=== PATIENT | male | born 1945 | race Caucasian/White ===

== ENCOUNTER → 2016-10-02 | Outpatient (CLI) | payer OTHER, BC ==
[~2016-10-02] VITALS: Ht 188 cm; Wt 102.5 kg
[~2016-10-02] MED LIST: ADULT LOW DOSE81 MG PO; ALEVE220 MG PO; AMLODIPINE BESY10 MG PO; BUPROPION XL150 MG PO; CIPRO500 MG/5 M PO; CONCERTA ER 2727 MG PO; COUMADIN7.5 MG PO; CYANOCOBALAM1000 MCG PO; DIOVAN160 MG PO; HYDROCODON-ACE1 EAC1 PO; HYDROCODON-ACE1 EAC5 PO; LEVOTHYROXIN0.175 MG PO; LEVOXYL PO; LIPITOR 20 MG T20 M1 PO; LOPRESSOR25 PO; LOSARTAN-HCTZ1 EAC2 PO; MINOCIN100 MG PO; NABUMETONE 750750 M1 PO; NEURONTIN 300300 M1 PO; NEURONTIN100 MG PO; NORCO 10-325 T1 EACH PO; NORCO 7.5-3251 EACH PO; PEPCID20 MG PO; REMERON15 M1 PO; SERTRALINE HCL100 MG PO; SYNTHROID150 MCG PO; TOPROL XL25 MG PO; ULTRAM 50MG TAB50 MG PO; WELLBUTRIN SR150 MG PO
--- NOTE | ~2016-10-02 | HPC ---
[facility] [place] [address] [address] PAIN MANAGEMENT CONSULTATION Name: KLARISSA PENNY [facility] #[facility] [id number] Admission: 10/02/16 Attend Phys: Celia Griffin MD Discharge: Date of : 46 Report #: [id number] THIS REPORT FOR: //name// CC: Celia Davis MD DATE OF SERVICE: 10/02/2016 FOLLOWUP COMPLAINT: Here for medication secondary to chronic right knee pain. FOLLOWUP COMPLAINT: The patient is a 71-year-old gentleman who has been followed in the pain clinic because of osteoarthritis and right knee pain. He continues to have pain and discomfort, which is quite problematic. He finds that his medications of hydrocodone continued to be helpful. He states that he is taking his medications as prescribed. He rates his pain as a 4/10 today. PHYSICAL EXAMINATION: The patient is alert, appears to be taking medication as prescribed. Blood pressure 113/73, pulse 73, respiratory rate 12, room air saturation 95%, height 6 feet 2 inches, weight 102 kg, and BMI is 29. IMPRESSION: 1. Osteoarthritis his right knee. The patient states 1 leg is a little longer than the other. 2. Hyperlipidemia. 3. Hypertension. RECOMMENDATIONS: A script for his medications has been rewritten. The patient states that he is taking his medications as prescribed. He will follow up with Dr. Nichole in the near future. We would like to thank you for letting us participate in his care. He feels that these medications are quite efficacious enabling him to continue to participate in activities of daily living with manageable comfort. By: [id number] Celia Griffin MD /nt
[2016-10-02 08:16] VITALS: BP 113/73
== END | disposition home or self-care (01) ==
LOC: PAIN 09-30 07:04
DX: M17.11 Unilateral primary osteoarthritis, right knee (principal); E78.5 Hyperlipidemia, unspecified; I10 Essential (primary) hypertension

== ENCOUNTER → 2017-03-11 | Outpatient (CLI) | payer OTHER, BC ==
[~2017-03-11] VITALS: Ht 188 cm; Wt 101.8 kg
--- NOTE | ~2017-03-11 | HPC ---
[facility] [place] [address] [address] [place] [address] PAIN MANAGEMENT CONSULTATION Name: KLARISSA PENNY Room #: REG CL MJacob.#: [id number] Admission: 03/11/17 Attend Phys: Bernard Nichole MD Discharge: Date of : 46 Report #: [id number] THIS REPORT FOR: //name// CC: Pascual Nichole DATE OF SERVICE: 03/11/2017 DATE OF REGISTRATION: 03/11/2017 Followup visit for chronic right knee pain. The patient is managing his osteoarthritis pain with hydrocodone. He takes a small amount 15 morphine mg equivalents per day and finds that this is very effective without significant side effect. He does not require the use of nonsteroidal anti-inflammatory drugs when he uses his hydrocodone and is cautious about them due to these GI side effects. Today, he reports with medication pain is 5. He describes it sharp and aching and tender. It has been getting progressively worse and radiating a little bit down towards the nuñez. He would be a candidate for knee replacement. He would like to hold off on surgery at this time. The patient had a history of reconstruction of the left knee after a fall in 2011. PHYSICAL EXAMINATION: VITAL SIGNS: Blood pressure 129/77, heart rate 73, BMI is 28. EXTREMITIES: Mild tenderness and crepitus is noted over the right knee with osteoarthritis. IMPRESSION: 1. Osteoarthritis, right knee. 2. Management of high risk medication. PLAN: I have renewed his hydrocodone under terms of our opioid agreement. His role in safeguarding these medications was discussed. No side effects are reported today. Significant improvement day-to-day activities also reported with the use of his medicines. Follow up in 3 months. By: [id number] 0234 Bernard Nichole MD /nt
[2017-03-11 14:34] VITALS: BP 129/77
== END | disposition home or self-care (01) ==
LOC: PAIN 07:16
DX: M17.11 Unilateral primary osteoarthritis, right knee (principal); Z79.1 Long term (current) use of non-steroidal anti-inflammatories (NSAID); Z87.891 Personal history of nicotine dependence

== ENCOUNTER → 2017-08-04 | Outpatient (CLI) | payer OTHER, BC ==
[~2017-08-04] VITALS: Ht 188 cm; Wt 103.0 kg
[~2017-08-04] MED LIST changes: +EFFEXOR XR37.5 MG PO; +METHYLPHENIDATE27 MG PO; +XANAX 0.5 MG0.5 MG PO
--- NOTE | ~2017-08-04 | HPC ---
[facility] [place] [address] [place] [address] PAIN MANAGEMENT CONSULTATION Name: KLARISSA PENNY Room #: REG CL M..#: [id number] Admission: 08/04/17 Attend Phys: Bernard Nichole MD Discharge: Date of : 46 Report #: [id number] THIS REPORT FOR: //name// CC: Pascual Nichole DATE OF SERVICE: 08/04/2017 Followup visit for osteoarthritis, right knee. The patient returns to pain clinic today for renewal of his pain medication. He is on a very low dose of hydrocodone, taking on average no more than 2 tablets of oxycodone 10/325 per day. This would be an MME of 20. We discussed the CDC guidelines, his opioid agreement and I have reviewed the opioid risk tool which is 3, showing a [id number] risk. He has a pain impact score of 40/70. Since the last visit, he has been diagnosed with prostate cancer. Dr. Davis felt some unusual nodules. PSA was elevated and Dr. Pedroza performed a biopsy. He is currently on Lupron, his only new medication. PQRS review shows that he does have osteoarthritis of the right knee, for which I provided him pain relief medication. His BMI is 29.1. His blood pressure is 122/73, heart rate is 72. He does not have a history of hypertension. He has no history of fall risk. He is on an opioid agreement, which was signed today. His opioid risk tool and functional assessment tools were both reviewed as well. Functional assessment is 40/70 and his risk assessment tool is 3, which is low risk for addiction. I told him what his MME is; he should keep track of that. I told him that at this low level, Dr. Davis could provide medication for him if he would like going forward. He will continue to follow up with our clinic until the transitions are made through. <ELECTRONICALLY SIGNED> By: Bernard Nichole MD 08/18/17 1640 [id number] 0052 Bernard Nichole MD /nt
[2017-08-04 13:45] VITALS: BP 122/73
== END ==
LOC: PAIN 06:45
DX: M17.11 Unilateral primary osteoarthritis, right knee (principal)

== ENCOUNTER → 2018-01-04 | Outpatient (CLI) | payer OTHER, BC ==
[~2018-01-04] VITALS: Ht 188 cm; Wt 101.9 kg
[~2018-01-04] MED LIST changes: -EFFEXOR XR37.5 MG PO; -METHYLPHENIDATE27 MG PO; -XANAX 0.5 MG0.5 MG PO
--- NOTE | ~2018-01-04 | HPC ---
[facility] [address] [place] [address] PAIN MANAGEMENT CONSULTATION Name: HEMALATHAKLARISSA Room #: REG CL M.R.#: [id number] Admission: 01/04/18 Attend Phys: Klarissa Barrera DO Discharge: Date of : 46 Report #: [id number] THIS REPORT FOR: //name// CC: Klarissa Davsi MD DATE OF SERVICE: 01/04/2018 REFERRING PHYSICIAN: Pascual Davis MD CHIEF COMPLAINT: Right knee and distal right leg pain. HISTORY OF PRESENT ILLNESS: As you know, the patient is a 72-year-old male who has been followed by my partner, Dr. Bernard Nichole for right knee pain with radiation to the top of the ankle on the right side. The patient has undergone epidural injections and intra-articular knee injections, both of which have provided transient improvement in symptoms. He returns today stating his pain is constant, spiky in sensation, he states pain at a level of 4/10, indicates pain is exacerbated with standing, pain with walking, appears to cause some symptoms at night that he response to descriptions of aching and pounding. He indicates pain is alleviated with exercise and medication management. The patient returns today in followup visit to discuss continuation of medication management. He has not had evaluation of the lower extremity from an EMG standpoint. There is some consideration his symptoms may be related to the lumbar spine, though his response to both the epidural injection and intra-articular knee injection was only for 30 minutes profound improvement with immediate return of pain. He returns for medication management and to discuss options for treatment. ALLERGIES: HYDROMORPHONE. CURRENT MEDICATIONS: Hydrocodone/acetaminophen 10/325 one tab every 6 hours p.r.n. for pain, levothyroxine 175 mcg per day, atorvastatin 20 mg per day, aspirin 81 mg per day, Remeron 15 mg per day, sertraline 100 mg per day, and amlodipine 10 mg per day. SOCIAL HISTORY: The patient reports he is nonsmoker. Denies IV or illicit drug use. He is unaccompanied today. IMAGING: No new imaging available. PQRS: The patient has right lower extremity osteoarthritis, mild left knee arthritis. He is not a fall risk, has not had a fall in the last 3 months. He is not on blood thinners. He is treated for hypertension. He is on opioids and has been so for greater than 6 weeks. He is at a low risk for opioid addiction. [address] [address] PAIN MANAGEMENT CONSULTATION Name: HEMALATHAKLARISSA MCPHERSON LETICIA Room #: REG CLI [facility] [id number] Admission: 01/04/18 Attend Phys: Klarissa Barrera DO Discharge: Date of : 46 Report #: [id number] His functional assessment indicates pain impact score 40/70, moderate. He does not have a diagnosis of rheumatoid arthritis. PHYSICAL EXAMINATION: VITAL SIGNS: Blood pressure 127/80, pulse 81, respiratory rate 16 and unlabored, the patient is 97% on room air, height 6 feet 2 inches tall, weight 224.6 pounds, and BMI calculated 28.8. GENERAL: Well-developed, well-nourished, well-hydrated 72-year-old male, appears stated age, placing current pain score at 4/10. HEENT: Normocephalic, atraumatic. Pupils are equal, round, and reactive to light. EXTREMITIES: Show no clubbing, no cyanosis, and no edema. MUSCULOSKELETAL: Active and passive range of motion of the left knee causes no increasing pain. Active and passive range of motion right knee causes intensification of pain. Weightbearing causes pain elicited at the superior tibia with radiation all the way to the distal tibia. No fibular involvement. Seated straight leg raising negative. Supine straight leg raising negative. Anh's test negative. Modified Gaenslen's only positive for some axial back pain. This does not exacerbate right leg pain. ASSESSMENT: 1. Right lower extremity pain. 2. Right knee pain. 3. Chronic intractable pain. PLAN: 1. The patient returns today in followup visit stating that he has received exactly the same effect with an intraarticular knee injection on the right as he did with an epidural injection with 100% improvement in pain lasting for about 30 minutes and a subsequent return of symptoms to baseline level. Difficult to determine the source of the patient's symptoms given the efficacy of both injections, but only for that a transient amount of time. Further evaluation of the right lower extremity may be necessary, his distribution appears to be related more to the tibia and the anterior tibialis muscle than it would any other potential pain generator, the intraarticular knee injection did not provide prolonged improvement, though he does likely have some arthritic changes on that right knee; the lumbar spine injection was done without prolonged improvement effectively ruling out the lumbar spine is the source of the symptoms. His distribution does not meet dermatomal distribution as well. Further evaluation I believe might be necessary. We would recommend to Dr. Nichole and/or Dr. Davis the possibility of having the patient to undergo EMG, this would help determine if there is a neuropathic component of symptoms or whether or not there is a more distal lumbar radicular symptoms, but given the distribution of symptoms, I do not feel this is likely. EMG could help further determine the source of the patient's symptoms. 2. The patient was provided a prescription of [place] 10/325 one tab every 6 [facility] [place] [address] PAIN MANAGEMENT CONSULTATION Name: KLARISSA PENNY Room #: REG EFE Gillespie.#: [id number] Admission: 01/04/18 Attend Phys: Klarissa Barrera DO Discharge: Date of : 46 Report #: [id number] p.r.n. for pain, I have given the patient #120, release dates of today and 4 weeks from today, 2 months' worth of medication. The patient will be following up with Dr. Nichole for the possible EMG referral. Otherwise, he will be back in 2 months for medication management. By: [id number] Klarissa Barrera DO /nt
[2018-01-04 09:46] VITALS: BP 127/80
== END ==
LOC: PAIN 08:21
DX: M25.561 Pain in right knee (principal); M79.604 Pain in right leg; G89.4 Chronic pain syndrome; Z79.899 Other long term (current) drug therapy

== ENCOUNTER → 2018-01-20 | Outpatient (CLI) | payer OTHER, BC ==
[~2018-01-20] VITALS: Ht 188 cm; Wt 101.6 kg
[~2018-01-20] MED LIST changes: +EFFEXOR XR37.5 MG PO; +METHYLPHENIDATE27 MG PO; +XANAX 0.5 MG0.5 MG PO
--- NOTE | ~2018-01-20 | HPC ---
[facility] [place] [address] [place] [address] PAIN MANAGEMENT CONSULTATION Name: KLARISSA PENNY [facility] #[facility] [id number] Admission: 01/20/18 Attend Phys: Bernard Nichole MD Discharge: Date of : 46 Report #: [id number] THIS REPORT FOR: //name// CC: Pascual Nichole DATE OF SERVICE: 01/20/2018 CHIEF COMPLAINT: Pain in the right knee. I am seeing the patient today with complaints of knee pain. Pain is worse with activity and after he has been active and then sits, the pain is worse when he first gets up. It is often worse at night. Describes it as a spiky constant pain, 5/10. When the pain is severe, it radiates from just below the kneecap down into the nuñez and to the ankle. We have given some consideration to this pain, radicular symptoms as he has had treatment for that in the past; however, there is a lot of localized discomfort around the knee. His exam seems to point the knee as the primary pain generator. MEDICATIONS: Include venlafaxine, alprazolam, methylphenidate and hydrocodone. ALLERGIES: HYDROMORPHONE. PHYSICAL EXAMINATION AND PQRS: Pleasant, alert and oriented, without signs of overmedication. No signs of depression. Blood pressure 152/78, heart rate 71, respirations 16. BMI is 28.7. He is not a fall risk. He moves from sitting to standing position and walks with some discomfort in his knee, but otherwise, without antalgic features. He has osteoarthritis and tenderness around the knee. Drawer test is negative. There is pain along the lateral aspect of the knee joint itself that radiates down into the lateral calf. No numbness, tingling or weakness is noted. He is on an opioid agreement receiving hydrocodone from our clinic under terms of that agreement. We reviewed the details. He is at low risk for addiction. He is a nonsmoker. SOCIAL HISTORY: Denies use of excessive alcohol or any drug addictions. IMPRESSION: Right knee pain with osteoarthritis. PROCEDURE: Knee injection under fluoroscopic guidance. DESCRIPTION OF PROCEDURE: He was taken to fluoroscopic suite for the injection, placed supine. The skin was prepped with ChloraPrep. Skin was anesthetized laterally and I gently advanced a 25-gauge needle and a subpatellar fashion into the intra-articular knee joint. I injected 0.5 mL of Omnipaque to demonstrate [address] [address] PAIN MANAGEMENT CONSULTATION Name: KLARISSA PENNY Room #: REG EFE Nino#: [id number] Admission: 01/20/18 Attend Phys: Bernard Nichole MD Discharge: Date of : 46 Report #: [id number] an articular spread. It was then followed by 3 mL of 0.5% bupivacaine mixed with 40 mg of triamcinolone. He tolerated the procedure well. Medications were provided for him under our agreement terms hydrocodone 10325 #120 one tablet q. 6 hours. Strict instructions given to safeguard his medication. Diversion being one of the primary methods by which prescription medications are dispersed into the general population, and he has significant responsibilities in using the medication. If it is not better, I will see him back in the clinic for possible epidural injection. By: 1003 1822 Bernard Nichole MD /nt
[2018-01-20 09:08] VITALS: BP 152/78
== END | disposition home or self-care (01) ==
LOC: PAIN 06:35
DX: M17.11 Unilateral primary osteoarthritis, right knee (principal); G89.29 Other chronic pain; Z88.8 Allergy status to other drugs, medicaments and biological substances; Z79.891 Long term (current) use of opiate analgesic; Z87.891 Personal history of nicotine dependence; Z79.899 Other long term (current) drug therapy; Z79.82 Long term (current) use of aspirin

== ENCOUNTER → 2018-05-31 | Outpatient (CLI) | payer OTHER, BC | LOC: MRI 06:49 | DX: S43.492A Other sprain of left shoulder joint, initial encounter (principal); M19.012 Primary osteoarthritis, left shoulder; M75.22 Bicipital tendinitis, left shoulder; M25.412 Effusion, left shoulder; M25.812 Other specified joint disorders, left shoulder; X58.XXXA Exposure to other specified factors, initial encounter; Y93.89 Activity, other specified; Y92.89 Other specified places as the place of occurrence of the external cause; Y99.8 Other external cause status ==

== ENCOUNTER → 2018-06-06 | Outpatient (CLI) | payer OTHER, BC ==
[~2018-06-06] VITALS: Ht 188 cm; Wt 104.3 kg
--- NOTE | ~2018-06-06 | HPC ---
[facility] [address] [place] [address] PAIN MANAGEMENT CONSULTATION Name: KLARISSA PENNY Room #: REG CLI M..#: [id number] Admission: 06/06/18 Attend Phys: Carey Stewart Discharge: Date of : 46 Report #: [id number] THIS REPORT FOR: //name// CC: Carey Stewart Pascual [facility] DATE OF SERVICE: 06/06/2018 CHIEF COMPLAINT: Pain in his right knee and right shoulder. HISTORY OF PRESENT ILLNESS: The patient returns to the pain clinic today for complaints of right knee pain. He is here for his medication management. The patient takes hydrocodone 10/325 sparingly for his right knee pain. He has had some ongoing right shoulder pain as well and the patient is scheduled to have his right shoulder replaced in June by Dr. Ryan. He tells me that he had a recent injection from Dr. Klarissa Barrera in January that helped him significantly with his knee pain. ALLERGIES: HYDROMORPHONE. LIST OF CURRENT MEDICATIONS: Xanax 0.5 mg as needed, methylphenidate ER 27 mg every day, hydrocodone 10/325 as needed, Synthroid 0.175 mg daily, atorvastatin 20 mg daily, aspirin 81 mg daily, Remeron 15 mg at bedtime, Zoloft 100 mg daily, amlodipine 5 mg daily. PQRS: He has a history of osteoarthritis in his right lower extremity, knee and right shoulder. He denies rheumatoid arthritis. Height is 6 feet 2 inches, weight is 230, BMI is 29.5. Vital signs: Blood pressure 136/79, pulse is 71, respirations 14, oxygen sat is 96. Pain score today is 4/10. He denies dizziness. Does not need help walking or standing and has not fallen in the last 3 months. The patient is not on any blood thinners and does have a history of taking antihypertensive medicines. The patient has opioid therapy greater than 6 weeks, therefore, an opioid signed contract is on the chart. His risk assessment tool is low and his functional assessment is 40/70. Recreational drug use, the patient denies. He is a former smoker and does drink occasional alcohol use. We did check the prescription monitoring system. The patient is filling his pain medications from only doctors here within the clinic. The patient tells me he safeguards his medicines and so there is no aberrant behavior noted. We do not have a recent drug screen on the chart so therefore one will be collected today. PHYSICAL EXAMINATION: GENERAL: This is a very pleasant, alert and oriented 72-year-old gentleman that appears his stated age. His affect is appropriate. No signs of depression. HEENT: Normocephalic, atraumatic. Extraocular eye muscles are intact. Mucous membranes are moist. Hearing is adequate. [address] [address] PAIN MANAGEMENT CONSULTATION Name: HEMALATHA,KLARISSA KELLY Room #: REG [facility] [id number] Admission: 06/06/18 Attend Phys: Carey Stewart Discharge: Date of : 46 Report #: [id number] NECK: No JVD or adenopathy. MUSCULOSKELETAL: Tenderness in his right shoulder. Pain is elicited doing range of motion, has very limited range of motion in that shoulder. The patient has right knee tenderness, but strength in all lower extremity muscle groups judged to be 5/5. The patient does walk with some slightly antalgic gait. We reviewed the fact that opiate medications are being used to provide analgesia adequate to support activities of daily living, not attempting to achieve a specific pain score on the 0-10 Visual Analog Scale. The current opiate medications are providing sufficient analgesia to allow the patient to participate in activities of daily living. The patient is not exhibiting any aberrant behavior suggestive of drug diversion. The patient is not having any adverse reactions to medications. The patient is not suffering from daytime somnolence or mental acuity changes. The patient is managing opiate-induced constipation with appropriate bxle-asu-gtpioit agents and dietary considerations. The patient was counseled on concern for caution with operating a motor vehicle while using opiate medications. A physical exam was performed and the patient's functional status was evaluated. All patients with back pain were advised against the bed rest greater than 4 days and were advised to return to normal activities. Pain score assessment was noted and the treatment plan was reviewed with the patient. All current medications, both prescribed and OTC were reviewed and reconciled on the electronic medical record. Tobacco screening was accomplished and smoking cessation was advised when indicated. BMI was noted and diet/exercise modification was recommended for all patients following outside normal parameters. I reviewed with the patient today their responsibilities to safeguard prescription medications, reviewed their responsibility to utilize medications only as prescribed by the physician. They are to seek and receive pain medications only from 1 physician group ( [facility]). They are to use 1 pharmacy and keep the clinic informed if they change pharmacies. Their responsibilities include making followup visits in a timely fashion and to avoid abrupt discontinuation of medication usage. Their responsibilities further include bringing their medications (bottles from the pharmacy with residual pills) to the visit for possible confirmation of pill counts and the patient understands it is their responsibility to submit to random drug screens to ensure both that the medications prescribed are present, and that no other controlled substances are present. All prescriptions provided today were generated electronically. ASSESSMENT: Right knee pain with osteoarthritis, right shoulder pain with osteoarthritis. PLAN: [place] [id number] PAIN MANAGEMENT CONSULTATION Name: KLARISSA PENNY Room #: REG [facility].#: [id number] Admission: 06/06/18 Attend Phys: Carey Stewart Discharge: Date of : 46 Report #: [id number] 1. We discussed treatment options with the patient today. The patient tells me that he currently takes his hydrocodone as needed. He takes it very sparingly. Last scripts that we gave him were in December. We gave him 120 with a release today and 4- week. The patient tells me he safeguards his medicines, but is running low and would like a refill. 2. Script given today for 120 of hydrocodone 10/325 for 2 months. 3. The patient tells me that he is having his right shoulder replaced in June. We discussed trying to take very minimal or no hydrocodone prior to surgery for at least a week, so therefore when he has his surgery, his pain medicine will work better. The patient is agreeable with this plan. I also instructed him that if the surgeon gives him any stronger pain medicines, just to let us know. We will make note that he is having surgery. The patient informed me he will call if he does get anything stronger than hydrocodone that he is currently taking. 4. Oral drug screen is collected today. There has not been a recent drug screen on his chart. We are happy to do that. He understands the CDC guidelines trying to keep people on the lowest most effective doses of medicines and keeping them under 50 MMEs, which this patient does fall in those categories. The patient will be seen as needed for followup for his medication and seen today with Dr. Nichole in collaboration of his care given today. <ELECTRONICALLY SIGNED> By: Carey Stewart 06/07/18 0713 1149 1323 Carey Stewart /nt
[2018-06-06 11:04] VITALS: BP 136/79
== END ==
LOC: PAIN 01:55
DX: M17.11 Unilateral primary osteoarthritis, right knee (principal); M19.011 Primary osteoarthritis, right shoulder; Z79.899 Other long term (current) drug therapy

== ENCOUNTER 2018-07-13 05:45 | Inpatient (IN) | payer OTHER, BC ==
[2018-07-04 08:40] LABS: HEMATOCRIT 41.3 % (42.0-52.0); HEMOGLOBIN 14.1 gm/dL (14.0-18.0); MCH 35.8 pg (26.0-34.0); MCHC 34.1 g/dL (28.0-37.0); RBC 3.94 mil/uL (4.50-6.00); RDW 13.7 % (10.5-14.5); WBC 5.1 thou/uL (4.0-11.0)
[2018-07-04 08:52] LABS: CALCIUM 9.6 mg/dL (8.5-10.1); CREATININE 1.4 mg/dL (0.7-1.3); POTASSIUM 4.3 mmol/L (3.5-5.1); PROTIME 10.2 Seconds (9.3-11.4)
[2018-07-04 08:57] LABS: URINE BILIRUBIN NEGATIVE (Negative); URINE BLOOD NEGATIVE (Negative); URINE CLARITY CLEAR; URINE COLOR YELLOW; URINE GLUCOSE-RANDOM* NEGATIVE (Negative); URINE KETONES NEGATIVE (Negative); URINE LEUKOCYTES-REFLEX NEGATIVE (Negative); URINE NITRITE-REFLEX NEGATIVE (Negative); URINE PROTEIN (DIPSTICK) TRACE (Negative); URINE SPECIFIC GRAVITY 1.025 (1.005-1.035); URINE UROBILINOGEN 0.2 E.U./dl (0.2-1.0)
--- NOTE | 2018-07-04 13:36 | EKG ---
[address] [place] [address] ELECTROCARDIOGRAM REPORT Name: KLARISSA PENNY Room #: PRE IN M.RAyaka#: [id number] Admission: Attend Phys: Sahil Augustin Discharge: Date of : 46 Report #: [id number] THIS REPORT FOR: //name// [facility] Test Date: 2018-07-04 Test Time: 08:43:59 Pat Name: KLARISSA PENNY Department: Room: Gender: Director Of Dietary: rebecca : 1945 Requested By: Sahil Ryan Order Number: [id number] MD: Cali Gil Measurements Intervals [place] Rate: 74 P: 53 VT: 187 QRS: -59 QRSD: 120 T: 28 QT: 425 QTc: 472 Interpretive Statements Sinus rhythm Left anterior fascicular block Compared to ECG 11/21/2015 15:46:33 Left anterior fascicular block now present Electronically Signed On 07-04-2018 13:36:43 THERAPIST by Cali Gil [email or web address] <ELECTRONICALLY SIGNED> By: Cali Gil MD 07/04/18 1336 2 2 Cali Gil MD /IRMA
[2018-07-13] VITALS (7 sets, daily range): BP systolic 112–144; BP diastolic 65–75
[~2018-07-13] VITALS: Ht 188 cm; Wt 105.2 kg
[~2018-07-13 05:45] MED LIST changes: +CENTRUM SILVER1 EAC2 PO; +SYNTHROID175 MCG PO
--- NOTE | 2018-07-13 17:23 | NUR ---
Received pt from post op, right total shoulder arthoroplasty aquacel dressing in place with [facility].Pt has not complaiined of pain as of the moment. Is on a summer liquid diet and to be advanced as tolerated, no issues with clear liquids will advance to soft.
[2018-07-14 04:27] VITALS: BP 123/75
[2018-07-14 05:20] VITALS: BP 120/66
--- NOTE | 2018-07-14 05:38 | NUR ---
PATIENT ARRIVED ON UNIT AT 0515 VIA W/C FROM 4W ACCOMPANIED BY 4W PERSONEL. PATIENT ALERT AND ORIENTED X4. POLAR ICE AND SLING ON R SHOULDER. STATES PAIN 3 FOR NOW BUT STATES THAT BLOCK HAS NOT WORE OFF YET. IV PATNET IN LW WITH LR AT 80ML/HR. PATIENT ABLE TO GET UP AND WALK. VSS.
[2018-07-14 05:47] LABS: HEMATOCRIT 35.4 % (42.0-52.0); HEMOGLOBIN 12.2 gm/dL (14.0-18.0)
[2018-07-14 06:09] LABS: POTASSIUM 4.6 mmol/L (3.5-5.1)
[2018-07-14 07:32] VITALS: BP 122/73
--- NOTE | 2018-07-14 10:22 | NUR ---
ASSUMED CARE OF PATIENT THIS MORNING. PATIENT IS ALERT AND ORIENTED X 4. HE IS UP AD CINTHYA. HE HAD RIGHT TOTAL SHOULDER ARTHOPLASTY YESTERDAY. HE HAS A POLAR PACK ON THE RIGHT SHOULDER AND A SLING. HE HAS ALSO A NERVE BLOCK BUT HE IS STILL HAVING BREAKTHROUGH PAIN. HE WAS GIVEN OXYCODONE WITH NO RELIEF AND THEN GIVEN MORPHINE IV PUSH. PATIENT WAS ASSESSED THIS MORNING NO ABNORMAL FINDINGS. HE IS CURRENTLY RESTING IN BED WITH SCD'S ON WITH CALL LIGHT WITHIN REACH. HE CALLS OUT APPROPRIATELY.
[2018-07-14 13:47] VITALS: BP 122/73
--- NOTE | 2018-07-14 14:36 | NUR ---
PATIENT DISCHARGED HOME WITH SELF CARE. WILL FOLLOW UP WITH [facility] OFFICE IN 1 WEEK. PRESCRIPTIONS WERE CALLED INTO PATIENTS LOCAL PHARMACY. IV REMOVED FROM PATIENT. PATIENT LEFT THE UNIT WITH VOLUNTEER TRANSPORT TO THE MAIN ENTRANCE WHERE HE MET HIS UBER TRAFFIC COURT REFEREE TO TAKE PATIENT HOME.
--- NOTE | 2018-07-15 10:52 | O ---
[facility] [place] [address] OPERATIVE REPORT Name: KLARISSA PENNY Room #: 220-P [facility] IN M.R.#: [id number] Admission: 07/13/18 Attend Phys: Sahil Augustin Discharge: 07/14/18 Date of : 47 Report #: [id number] THIS REPORT FOR: //name// CC: Sahil Davis DATE OF SERVICE: 07/13/2018 PREOPERATIVE DIAGNOSES: Right shoulder pain, osteoarthritis, biceps tendinopathy. POSTOPERATIVE DIAGNOSES: Right shoulder pain, osteoarthritis, biceps tendinopathy. PROCEDURE PERFORMED: Right total shoulder arthroplasty with open biceps tenodesis. SURGEON: Sahil Ryan MD INSTRUMENT LENS INSPECTOR: Aurora Kwok PA-C ANESTHESIA: General with preoperative ultrasound-guided interscalene block. FLUIDS: 800 mL of crystalloid. ESTIMATED BLOOD LOSS: Approximately 100 mL. IMPLANTS UTILIZED: DePuy Global Unite stem size 12, size 12 proximal body, 52 mm x 18 mm eccentric humeral head with 52 mm standard anchor peg glenoid. DESCRIPTION OF PROCEDURE: After proper identification of the patient and operative site in preoperative holding area, the operative site was signed by myself. Prophylactic antibiotics given. The patient elected to receive an interscalene block after reviewing the risks, benefits, alternatives and potential complications with Anesthesia. After a satisfactory block, the patient was brought back to the operative suite. After induction of satisfactory general anesthesia, the patient was carefully positioned in beach chair with head of bed elevated approximately 40 degrees. The right shoulder was sterilely prepped and draped in the usual manner. Final skin draping was with Ioban isolation drape. Polisofia limb positioning system was utilized throughout the entire procedure to aid in patient limb positioning. Anterior deltopectoral approach was planned. Skin was incised sharply. Full thickness skin flaps were developed. Cephalic vein was identified and retracted laterally. Subdeltoid space was carefully opened. Brown retractor was used to retract the deltoid. At this point, advanced biceps tenosynovitis and partial thickness tearing was noted. Biceps was tenodesed to the undersurface of the [facility] [address] [place] [address] OPERATIVE REPORT Name: KLARISSA PENNY Room #: 220-P [facility] IN M.R.#: [id number] Admission: 07/13/18 Attend Phys: Sahil Augustin Discharge: 07/14/18 Date of : 47 Report #: [id number] upper border of the pectoralis major with #2 FiberWire. Free end of stump was then followed proximally. Bicipital groove was opened as well as the rotator interval. Anterior circumflex vessels were identified, ligated and cauterized. A lesser tuberosity osteotomy was performed. Tag stitch was placed on the subscapularis. Advanced degenerative changes on both sides of the glenohumeral joints were noted. The supraspinatus and the remainder of the rotator cuff was intact. The patient's kluti kaah retroversion was approximately 25 degrees and using 135 degree cutting guide, an osteotomy of the humeral head was performed. Large peripheral osteophyte was removed and a 52 mm x 18 mm head provided the best recreation of the proximal humeral anatomy. Canal was reamed by hand up to a size 12 stem. A [employer] cutter broach was utilized as well as the trial stem was carefully implanted. It had good purchase. Protection plate was applied and then the anterior capsule was bluntly dissected free from the subscapularis and the subscapularis was released circumferentially. Great care was taken to identify and protect the axillary nerve throughout the entire procedure. The remaining biceps tendon stump and labrum was removed circumferentially. Inferior capsule was carefully released off the glenoid. There was excellent exposure of the glenoid. Advanced degenerative changes were noted. A 52 mm glenoid provided the best overall fit for the glenoid. It was placed at the appropriate guide. Position was verified in multiple planes. Glenoid face was reamed. Any remaining soft tissue was carefully debrided and a step drill was then utilized. The multi-peg guide was carefully impacted. Peripheral pegs were drilled. Derotation pegs were utilized. These were all removed. All the peripheral pegs were contained. Joint was thoroughly irrigated with normal saline. A trial glenoid could be fully seated and provided a good fit and coverage of the glenoid. This was removed. The joint was again thoroughly irrigated with normal saline. FloSeal was utilized. Bone graft was applied to a 52 mm glenoid and a bag of cement was then prepared and placed within a Tuohy syringe. FloSeal was irrigated and suctioned out. Peripheral pegs were cemented, bone grafted. Glenoid was then carefully impacted into position and held firmly in place until the cement had cured and was stable and satisfactorily placed. At this point, a plastic dura was used to protect the glenoid. Humeral head was then placed on the stem, 52 mm x 18 mm head. That was the final implant chosen eccentric. Trial implants removed. Four drill holes were placed in the anterior cortex of the humerus where four #2 FiberWires were passed, the inferior 2 sutures around the prosthesis after the Global Unite brosteotome had been utilized. The implant was prepared on the back table, assembled and tightened. It was carefully impacted. The inferior 2 sutures were wrapped around the stem. Once this was fully seated, the head was placed and impacted into position. There was approximately 50% translation posteriorly. Proximal humeral anatomy was nicely recreated. Joint was thoroughly irrigated with normal saline. Subscapularis was repaired with modified Camron Jah technique. Lateral portion of the rotator interval was repaired with #2 FiberWire. The patient could be easily externally rotated 45 degrees without any tension on the subscapularis. Axillary nerve was identified and protected throughout the entire procedure. One gram of vancomycin powder [address] [address] OPERATIVE REPORT Name: KLARISSA PENNY Room #: 220-P [facility] IN M.R.#: [id number] Admission: 07/13/18 Attend Phys: Sahil Augustin Discharge: 07/14/18 Date of : 47 Report #: [id number] was utilized, half of it deep, half of it more superficial. Deltopectoral interval was closed with 0 Vicryl, 2-0 Vicryl. The subcutaneous tissues, final skin closure was with running subcuticular 4-0 Monocryl. Dermabond was applied. Sterile dressing was applied. At the time of dictation, the patient was still in the operative suite with anticipated discharge to the recovery room in stable condition and sling will be utilized for 4 weeks postoperatively. Qualified surgical assistant certified utilized throughout the entire procedure to aid in patient limb positioning, visualization and retraction of soft tissues with instrument passage, closure and sling and dressing application. <ELECTRONICALLY SIGNED> By: Sahil Ryan MD 07/15/18 1052 [id number] Sahil Ryan MD /nt
== END 2018-07-14 14:58 | disposition home or self-care (01) | DRG 483 ==
LOC: PRE 05:45 → TBA 05:48 → PRE 05:48 → SICU 14:14 → 4W 14:14 → OR 17:54 → EDSTATUS 17:56 → PRE 17:59 → SICU 07-14 05:27 → ENTRNSPT 07-14 14:17 → EDTRNSPTSTS 07-14 14:34 → SICU 07-14 14:58
PROVIDERS: Physician Assistant Surgical; ADMIT Orthopaedic Surgery Sports Medicine
DX: M19.011 Primary osteoarthritis, right shoulder (principal); F41.9 Anxiety disorder, unspecified; M17.10 Unilateral primary osteoarthritis, unspecified knee; M75.21 Bicipital tendinitis, right shoulder; F32.9 Major depressive disorder, single episode, unspecified; I10 Essential (primary) hypertension; Z98.42 Cataract extraction status, left eye; Z98.41 Cataract extraction status, right eye; Z90.49 Acquired absence of other specified parts of digestive tract; Z88.6 Allergy status to analgesic agent; Z98.52 Vasectomy status
CPT/HCPCS: 10047; 50010; 50101; 50172; 50386; 50417; 50697; 50733; 50935; 51320; 51751; 52001; 52138; 52256; 52282; 53000; 53078; 54118; 55430; 56521; 56524; 56525; 56526; 56530; 57095; 57103; 62110; 62900; 64039; 70005

== ENCOUNTER → 2018-10-24 | Outpatient (CLI) | payer OTHER, BC ==
[~2018-10-24] VITALS: Ht 188 cm; Wt 105.0 kg
--- NOTE | ~2018-10-24 | HPC ---
[facility] [address] [address] [place] [address] PAIN MANAGEMENT CONSULTATION Name: KLARISSA PENNY Room #: REG CL M..#: [id number] Admission: 10/24/18 ������������������ Attend Phys: Bernard Nichole MD Discharge: ������������������ Date of : 47 Report #: [id number] THIS REPORT FOR: //name// CC: MISAEL Nichole DATE OF SERVICE: 10/24/2018 Followup visit for chronic pain. The patient returns to the pain clinic today for complaints of pain of the right knee. Would like prescription written for physical therapy and I will continue to provide medication for him for chronic intractable pain. He reports that his knee has been catching. He has a sharp, stabbing pain that is worse in the mornings and worse with walking. He has noted some weakness as well. PQRS REVIEW: He has a history of osteoarthritis involving right knee, right shoulder and reports a history of rheumatoid arthritis. He follows with Dr. Davis who writes medication for hypertension. We will write for his opioid medications, which were provided under an opioid agreement, which has been signed and he has completed an opioid risk tool, which shows he is at low risk with a score of 3. His functional assessment score is 40/70. He denies use of tobacco, drinks alcohol in social setting. He is not a fall risk nor has he fallen in the last 3 months. PHYSICAL EXAMINATION: VITAL SIGNS: Height 6 feet 2 inches, 231 pounds, BMI 29.7. Blood pressure 132/85, heart rate 70, respirations 16. He moves from sitting to standing position, has an antalgic gait. He has tenderness across his low back. He has pain in his right knee and tenderness to touch. Some limited range of motion and slight catching sensation noted. IMPRESSION: 1. Arthropathy, right knee. 2. Chronic low back pain with radiculopathy. RECOMMENDATIONS: 1. Physical therapy. Prescription written for right knee pain and right lumbar radiculopathy, L4-L5. 2. Hydrocodone #120. He is grateful for the pain relief that he receives. He improves in function after he takes it. Denies significant side [facility] [address] [place] [address] PAIN MANAGEMENT CONSULTATION Name: KLARISSA PENNY [id number] Admission: 10/24/18 ������������������ Attend Phys: Bernard Nichole MD Discharge: ������������������ Date of : 47 Report #: [id number] effects at this time and understands clearly from his opioid agreement to safeguard his medication. Followup visit planned in 3 months. ��������������������������������������������� ���������������������������������������� By: ��������������������������������������������� [id number] Bernard Nichole MD /nt
[2018-10-24 10:21] VITALS: BP 132/85
--- NOTE | 2018-10-24 10:36 | NUR ---
Pain Clinic Assessment: 1. History of Osteoarthritis: Right Lower Extremity RIGHT SHOULDER History of Rheumatoid Arthritis: Not Applicable 2. Height: 6 ft. 2 in. 188.0 cm. Weight: 231.4 lb. oz. 104.963 kg. Patient's BMI: 29.7 3. Vital Signs: BP: 132/85 Pulse: 70 Resp: 16 Temp: 02 Sat: 98 ECG Mon: 4. Pain Intensity: 3 5. Fall Risk: Dizziness: N Needs help standing or walking: N Fallen in the last 3 months: N Fall risk comments: 6. Patient on Blood Thinner: None 7. History of Hypertension: Y 8. Opioid Therapy greater than 6 weeks: Y Opiate Contract Signed: 08/04/17 9. Risk Assessment Tool Provided: LOW RISK 08/21 10. Functional Assessment Tool: 11. Recreational Drug Use: Never Drug Type: Tobacco Use: Former Smoker Tobacco Type: Amount or Packs/day: How Many Years: Alcohol Use: Yes Frequency: Quant:
== END ==
LOC: PAIN 06:53
DX: G89.29 Other chronic pain (principal); M54.16 Radiculopathy, lumbar region; M17.11 Unilateral primary osteoarthritis, right knee; M19.011 Primary osteoarthritis, right shoulder; Z79.891 Long term (current) use of opiate analgesic

== ENCOUNTER → 2019-02-24 | Outpatient (CLI) | payer OTHER, BC ==
[~2019-02-24] MED LIST changes: +LIPITOR40 MG PO; +PREDNISONE 20 M20 MG PO
[2019-02-24 14:52] LABS: HEMATOCRIT 39.3 % (42.0-52.0); HEMOGLOBIN 13.2 gm/dL (14.0-18.0); MCH 35.5 pg (26.0-34.0); MCHC 33.6 g/dL (28.0-37.0); MCV 105.7 fL (80.0-100.0); RBC 3.71 mil/uL (4.50-6.00); RDW 13.7 % (10.5-14.5); WBC 8.3 thou/uL (4.0-11.0)
[2019-02-24 15:03] LABS: PROTIME 10.2 Seconds (9.3-11.4)
--- NOTE | 2019-02-24 15:57 | NUR ---
PT LEFT WITHOUT PROCEDURE BEING DONE. ORDER WAS UNCLEAR. DR CRAWFORD WANTED US TO CLARIFY ORDER. PT SAID HE DIDN'T WANT TO WAIT ANY LONGER AND SAID I WAS RUDE TO HIM.
== END | disposition home or self-care (01) ==
LOC: SPEC 13:54 → RAD 13:54
PROVIDERS: Radiology Diagnostic Radiology
DX: M53.3 Sacrococcygeal disorders, not elsewhere classified (principal); Z53.9 Procedure and treatment not carried out, unspecified reason; Z79.899 Other long term (current) drug therapy

== ENCOUNTER → 2019-02-25 | Outpatient (CLI) | payer OTHER, BC | END | disposition home or self-care (01) | LOC: RAD 11:00 | DX: M16.11 Unilateral primary osteoarthritis, right hip (principal); Z88.8 Allergy status to other drugs, medicaments and biological substances; Z79.899 Other long term (current) drug therapy ==

== ENCOUNTER → 2019-03-30 | Outpatient (CLI) | payer OTHER, BC ==
[~2019-03-30] VITALS: Ht 188 cm; Wt 99.2 kg
--- NOTE | ~2019-03-30 | HPC ---
[facility] [place] [place] [address] PAIN MANAGEMENT CONSULTATION Name: KLARISSA PENNY Room #: REG CL M.R.#: [id number] Admission: 03/30/19 Attend Phys: Bernard Nichole MD Discharge: Date of : 47 Report #: [id number] THIS REPORT FOR: //name// CC: MISAEL Nichole Followup visit for chronic osteoarthritis involving knee, now low back and hip. The patient is here today in the pain clinic and his pain has increased primarily due to findings that he has ogqb-nl-hmdi osteoarthritis of the right hip, in addition to pain in his knee. He has been so uncomfortable that he has scheduled a hip replacement. He has looked into both Dr. Alves as well as Dr. Leonel Niño, and is hopeful to go into surgery with the one who can him in the soonest. He said he is in lots of pain, particularly with standing and weightbearing. His knee also causes pain. Injections are not considered today due to a desire to go forward with a hip replacement as soon as possible. We do not want to stay in the way that some surgeons prefer to avoid any invasion of the joint space within 3 months of an injection. PQRS REVIEW: 1. He has complaints of osteoarthritis in multiple joints, including lower extremities, right hip, right knee and right shoulder. 2. BMI is 28.1. 3. Vital signs: Blood pressure 153/93, heart rate 68. 4. Pain intensity 6. 5. He needs help walking and standing, and uses a cane. 6. No blood thinners. 7. History of hypertension, treated by primary care service and I have reviewed all medications and reconciled. 8. He is on an opioid agreement, signed in 2018, most recently. 9. He is at low risk scoring 3 on the opioid risk tool. 10. Functional assessment score is 40, mostly due to problems associated with weightbearing activities. 11. Denies use of tobacco, drinks alcohol in social settings. PHYSICAL EXAMINATION: VITAL SIGNS: As noted above. GENERAL: He is pleasant, alert and oriented. No signs of depression, anxiety or overmedication. He does have a history of depression. He moves independently from sitting to standing position. His gait is antalgic. He has decreased range of motion in the right hip and right knee. Tenderness is located on both knee [place] [address] PAIN MANAGEMENT CONSULTATION Name: KLARISSA PENNY Room #: REG CLMarcelina Nino#: [id number] Admission: 03/30/19 Attend Phys: Bernard Nichole MD Discharge: Date of : 47 Report #: [id number] IMPRESSION: 1. Osteoarthritis, multiple joints. Most severe is the right hip, which he anticipates having replaced within the next 3-6 months. 2. Management of high risk medications under terms of written opioid agreement. I have provided him with oxycodone , #120 tablets. He will take it 4 times daily prior to surgery. RECOMMENDATIONS: We had a long discussion about the use of opioids as a medication, carefully keeping them protected. He is cautious about that. He understands his responsibilities and the CDC guidelines were reviewed as well. By: [id number] Bernard Nichole MD /nt
[2019-03-30 14:04] VITALS: BP 153/93
--- NOTE | 2019-03-30 14:13 | NUR ---
Pain Clinic Assessment: 1. History of Osteoarthritis: Right Lower Extremity RIGHT SHOULDER History of Rheumatoid Arthritis: Not Applicable 2. Height: 6 ft. 2 in. 188.0 cm. Weight: 218.6 lb. oz. 99.156 kg. Patient's BMI: 28.1 3. Vital Signs: BP: 153/93 Pulse: 68 Resp: 16 Temp: 02 Sat: 98 ECG Mon: 4. Pain Intensity: 6 5. Fall Risk: Dizziness: N Needs help standing or walking: Y Fallen in the last 3 months: N Fall risk comments: 6. Patient on Blood Thinner: None 7. History of Hypertension: Y 8. Opioid Therapy greater than 6 weeks: Y Opiate Contract Signed: 08/04/17 9. Risk Assessment Tool Provided: LOW RISK 08/21 10. Functional Assessment Tool: 11. Recreational Drug Use: Never Drug Type: Tobacco Use: Former Smoker Tobacco Type: Amount or Packs/day: How Many Years: Alcohol Use: Yes Frequency: Quant:
== END ==
LOC: PAIN 06:57
DX: M17.11 Unilateral primary osteoarthritis, right knee (principal); M16.11 Unilateral primary osteoarthritis, right hip; M19.011 Primary osteoarthritis, right shoulder; I10 Essential (primary) hypertension; Z79.891 Long term (current) use of opiate analgesic; Z79.899 Other long term (current) drug therapy

== ENCOUNTER → 2019-08-08 | Outpatient (CLI) | payer OTHER, BC ==
[~2019-08-08] VITALS: Ht 188 cm; Wt 93.6 kg
[~2019-08-08] MED LIST changes: +XARELTO10 MG PO
[2019-08-08 09:19] VITALS: BP 119/71
--- NOTE | 2019-08-08 09:31 | NUR ---
Pain Clinic Assessment: 1. History of Osteoarthritis: Right Lower Extremity RIGHT SHOULDER History of Rheumatoid Arthritis: Not Applicable 2. Height: 6 ft. 2 in. 188.0 cm. Weight: 206.4 lb. oz. 93.623 kg. Patient's BMI: 26.5 3. Vital Signs: BP: 119/71 Pulse: 64 Resp: 14 Temp: 02 Sat: 99 ECG Mon: 4. Pain Intensity: 5 5. Fall Risk: Dizziness: N Needs help standing or walking: Y Fallen in the last 3 months: N Fall risk comments: 6. Patient on Blood Thinner: *XARELTO 7. History of Hypertension: Y 8. Opioid Therapy greater than 6 weeks: Y Opiate Contract Signed: 08/04/17 9. Risk Assessment Tool Provided: LOW RISK 08/21 10. Functional Assessment Tool: 11. Recreational Drug Use: Never Drug Type: Tobacco Use: Former Smoker Tobacco Type: Cigarettes Amount or Packs/day: How Many Years: 40 Alcohol Use: Yes Frequency: Weekly Quant: 3-4
--- NOTE | 2019-08-09 07:52 | HPC ---
[facility] [place] [address] PAIN MANAGEMENT CONSULTATION Name: KLARISSA PENNY Room #: REG CL MJacob.#: [id number] Admission: 08/08/19 Attend Phys: Carey Stewart Discharge: Date of : 47 Report #: [id number] THIS REPORT FOR: cc: Pascual Davis MD, Rene P. MD Hocker, Amanda CNS ~ THIS REPORT FOR: //name// CC: Carey Davis DATE OF SERVICE: 08/08/2019 CHIEF COMPLAINT: Right knee pain, osteoarthritis. HISTORY OF PRESENT ILLNESS: This is a very pleasant 74-year-old gentleman who returns to the pain clinic today for refill of his medications. He reports since we saw him last in March, he has undergone a total right hip replacement. He reports that his hip is no longer causing him pain. His area that is most problematic is his right knee. He was hopeful that the pain would subside when he had his hip replaced due to his unsteady gait, but that has not been the case. His right knee continues to be most problematic. The patient reports that after surgery, he did develop a blood clot in his right leg. He is currently taking Xarelto and has been on that for the past month. He is going to have another scan next week at his postoperative visit. The patient is here present today requesting refills of his medication. He would like to go back to hydrocodone, which he was on prior to his surgery. His surgeon has been providing him with oxycodone in the initial postoperative period. The patient reports a pain score of 5/10 today. It is a deep ache, occasionally sharp but constant in his right knee. It is worse with standing and walking and in the mornings, it is worse. He does have some swelling in that right knee and leg that does progress throughout the day. He reports his medication as well as ice and a knee brace are very beneficial. Denies any problems with constipation from his medications. ALLERGIES: HYDROMORPHONE. CURRENT LIST OF MEDICATIONS: Xarelto 10 mg b.i.d., hydrocodone 10/325 p.r.n., Lipitor, Synthroid, Centrum Silver, losartan/hydrochlorothiazide, methylphenidate, Remeron, and amlodipine. PQRS: 1. He has osteoarthritis in multiple joints including hips and right hip and knee. [address] [address] PAIN MANAGEMENT CONSULTATION Name: KLARISSA PENNY Room #: REG CLI [facility].#: [id number] Admission: 08/08/19 Attend Phys: Carey Stewart Discharge: Date of : 47 Report #: [id number] 2. Denies any rheumatoid arthritis. 3. Height is 6 feet 2 inches, weight is 206, BMI is 26. 4. Vital signs 119/71, pulse is 64, respirations 14, oxygen sat is 99. 5. Pain score is 5/10. 6. Denies dizziness, does not need help walking or standing, has not fallen in the last 3 months. 7. The patient is on Xarelto. Does have a history of hypertension and takes medications. 8. Opiate therapy is greater than 6 weeks; therefore, an opioid signed contract is on the chart. Risk assessment tool is low. Functional assessment is 40/70. 9. Recreational drug use, he denies. He is a former smoker and does occasionally drink alcohol 3-4 times a week. According to the prescription monitoring system, the patient is filling appropriately. He has filled recently from his surgeon and no longer receiving oxycodone from him, which he did go back to his hydrocodone. There is a recent drug screen on the chart that is appropriate as well. PHYSICAL EXAMINATION: GENERAL: This is alert and orientated, pleasant 74-year-old gentleman who appears his stated age, placing his current pain score of 5/10. HEENT: Normocephalic, atraumatic. Extraocular eye muscles are intact. Mucous membranes are moist. MUSCULOSKELETAL: He moves independently from the sitting to standing position and uses a cane. He has an antalgic gait. His right knee has some swelling and 1+ edema in his lower extremity. He has tenderness in his right knee as well. Lower extremity strength judged to be 5/5 in all major muscle groups. IMPRESSION: 1. Osteoarthritis involving multiple joints, status post right hip replacement. 2. Right knee pain. 3. Management of high risk medications under terms of written opioid agreement. We reviewed the fact that opiate medications are being used to provide analgesia adequate to support activities of daily living, not attempting to achieve a specific pain score on the 0-10 Visual Analog Scale. The current opiate medications are providing sufficient analgesia to allow the patient to participate in activities of daily living. The patient is not exhibiting any aberrant behavior suggestive of drug diversion. The patient is not having any adverse reactions to medications. The patient is not suffering from daytime somnolence or mental acuity changes. The patient is managing opiate-induced constipation with appropriate mhwm-bdw-vwdkets agents and dietary considerations. The patient was counseled on concern for caution with operating a motor vehicle while using opiate medications. PLAN: [address] [address] PAIN MANAGEMENT CONSULTATION Name: KLARISSA PENNY Room #: REG CLMarcelina Nino#: [id number] Admission: 08/08/19 Attend Phys: Carey Stewart Discharge: Date of : 47 Report #: [id number] 1. We discussed treatment options with the patient today. The patient recently had his hip replaced, was taking oxycodone and gabapentin in the postop period. He is no longer requiring those and would like to go back to hydrocodone. Before surgery, Dr. Bernard Nichole was providing up to 4 tablets a day. The patient is not thinking that he needs that many. We will offer him a prescription of hydrocodone 10/325 up to 3 tablets a day. This may last the patient longer if he was able to get by on less Scripts were written for 90 with one additional refill in 4 weeks' time. 2. The patient is reminded he is not to take any Aleve, which he has been doing while he is on Xarelto. We discussed the risks of this medication. The patient verbalizes understanding. 3. The patient is seen today in collaboration with Dr. Klarissa Barrera who will electronically send his prescriptions. The patient will call for an appointment as needed or will be seen in 2 months if he has used all of his medications. <ELECTRONICALLY SIGNED> By: Carey Stewart 08/09/19 0752 [id number] Carey Stewart /nt
== END ==
LOC: PAIN 06:48
DX: M17.11 Unilateral primary osteoarthritis, right knee (principal); M19.90 Unspecified osteoarthritis, unspecified site; I10 Essential (primary) hypertension; Z87.891 Personal history of nicotine dependence; Z72.89 Other problems related to lifestyle; Z96.641 Presence of right artificial hip joint; Z79.899 Other long term (current) drug therapy; Z79.891 Long term (current) use of opiate analgesic; Z88.5 Allergy status to narcotic agent

== ENCOUNTER → 2020-01-25 | Outpatient (CLI) | payer OTHER, BC ==
[~2020-01-25] VITALS: Ht 188 cm; Wt 93.4 kg
[2020-01-25 08:04] VITALS: BP 147/84
--- NOTE | 2020-01-25 08:11 | NUR ---
Pain Clinic Assessment: 1. History of Osteoarthritis: Right Lower Extremity RIGHT SHOULDER History of Rheumatoid Arthritis: DENIES 2. Height: 6 ft. 2 in. 188.0 cm. Weight: 206.0 lb. oz. 93.441 kg. Patient's BMI: 26.4 3. Vital Signs: BP: 147/84 Pulse: 74 Resp: 14 Temp: 02 Sat: 99 ECG Mon: 4. Pain Intensity: 4 5. Fall Risk: Dizziness: N Needs help standing or walking: N Fallen in the last 3 months: N Fall risk comments: 6. Patient on Blood Thinner: None 7. History of Hypertension: Y 8. Opioid Therapy greater than 6 weeks: Y Opiate Contract Signed: 08/04/17 9. Risk Assessment Tool Provided: LOW RISK 08/21 10. Functional Assessment Tool: 11. Recreational Drug Use: Never Drug Type: Tobacco Use: Former Smoker Tobacco Type: Amount or Packs/day: How Many Years: Alcohol Use: Yes Frequency: Daily Quant: EVERY OTHER DAY
--- NOTE | 2020-01-29 13:16 | HPC ---
[facility] [address] [address] PAIN MANAGEMENT CONSULTATION Name: KLARISSA PENNY Room #: REG CL M..#: [id number] Admission: 01/25/20 Attend Phys: Carey Stewart Discharge: Date of : 47 Report #: [id number] THIS REPORT FOR: cc: Pascual Davis MD, Rene P. MD Hocker,Carey ARGUETA ~ DATE OF SERVICE: 01/25/2020 CHIEF COMPLAINT: Chronic osteoarthritis involving his right knee and right hip. HISTORY OF PRESENT ILLNESS: This is a pleasant 74-year-old who returns to the pain clinic today for refill of his medications that he is using to help treat his ongoing osteoarthritis of his right knee. He is complaining of some right hip pain as well. He feels that the hydrocodone is beneficial, taking a half a tablet twice a day. We have not seen him since July for medication refills since he does take these sparingly. Some days he feels he does not need pain medicine since his pain is controlled. Today, he rates his pain at a 4/10. It is worse at night. It is a chronic aching pain. He feels that he has done lots of standing and walking throughout the day that increases his pain in the evening. He does use ice packs as well as his medication. Today, he is requesting refills. ALLERGIES: HYDROMORPHONE. CURRENT MEDICATIONS: Hydrocodone, atorvastatin, levothyroxine, multivitamin, losartan/hydrochlorothiazide, Remeron, amlodipine and methylphenidate. PQRS: 1. He has osteoarthritis of his shoulders, knees and hips. Denies any rheumatoid arthritis. 2. Height is 6 feet 2, weight is 206, BMI is 26. 3. Vital signs; 147/84, pulse is 74, respirations 14, oxygen sat is 99%. 4. Pain score is 4/10. 5. Denies dizziness, does not need help walking or standing, has not fallen in the last 3 months. 6. The patient is not on blood thinners. He is on hypertensive medications. Opioid therapy is greater than 6 weeks; therefore, an opioid signed contract is on the chart. Risk assessment tool is low. Functional assessment is 29/70. 7. Recreational drug use, he denies a former smoker and occasionally drinks alcohol. PHYSICAL EXAMINATION: GENERAL: This is an alert and orientated, very pleasant gentleman who appears his stated age, placing his current pain score 4/10 today. HEENT: Normocephalic, atraumatic. Extraocular eye [place] [address] PAIN MANAGEMENT CONSULTATION Name: KLARISSA PENNY Room #: REG [facility].#: [id number] Admission: 01/25/20 Attend Phys: Carey Stewart Discharge: Date of : 47 Report #: [id number] wearing a mask. MUSCULOSKELETAL: He moves from sitting to standing position slowly. He does have an antalgic gait. He has tenderness in his right knee below the patella. It is tender to the touch. Some limited range of motions in this knee as well and does have ongoing right hip pain that is worse with ambulation. We did check the prescription monitoring system. The patient is filling appropriately, takes 10 MME per day of his medications. IMPRESSION: 1. Osteoarthritis of multiple joints, most severe of the right hip and right knee. 2. Management of high risk medications under terms of agreement. PLAN: 1. We discussed treatment options with the patient today. We will refill his hydrocodone 10/325, #90, for today and 4 weeks supply. These will be sent electronically to his pharmacy. 2. We did discuss possible use of Voltaren gel to his knee. It is [id number] and the patient would like to try that. He is able. I encouraged him to try 2 to 4 times a day to his knee and hands. 3. We did discuss that he may take an oral anti-inflammatory since he is off Xarelto now. If he feels that may be beneficial, but I encouraged him to try the Voltaren gel first. 4. The patient is seen today in collaboration with Dr. Griffin who is covering for Dr. Nichole. <ELECTRONICALLY SIGNED> By: Carey Stewart 01/29/20 1316 [id number] [id number] Carey Stewart /nt
== END ==
LOC: PAIN 06:43
PROVIDERS: ATTEND Clinical Nurse Specialist Adult Health
DX: M17.11 Unilateral primary osteoarthritis, right knee (principal); M16.11 Unilateral primary osteoarthritis, right hip; F11.20 Opioid dependence, uncomplicated; Z79.899 Other long term (current) drug therapy; Z88.8 Allergy status to other drugs, medicaments and biological substances

== ENCOUNTER → 2020-08-22 | Outpatient (CLI) | payer OTHER, BC ==
[~2020-08-22] VITALS: Ht 188 cm; Wt 98.7 kg
[2020-08-22 11:10] VITALS: BP 146/88
--- NOTE | 2020-08-22 11:14 | NUR ---
Pain Clinic Assessment: 1. History of Osteoarthritis: Right Lower Extremity RIGHT SHOULDER History of Rheumatoid Arthritis: DENIES 2. Height: 6 ft. 2 in. 188.0 cm. Weight: 217.6 lb. oz. 98.703 kg. Patient's BMI: 27.9 3. Vital Signs: BP: 146/88 Pulse: 67 Resp: 16 Temp: 02 Sat: 98 ECG Mon: 4. Pain Intensity: 3 5. Fall Risk: Dizziness: N Needs help standing or walking: N Fallen in the last 3 months: N Fall risk comments: 6. Patient on Blood Thinner: None 7. History of Hypertension: Y 8. Opioid Therapy greater than 6 weeks: Y Opiate Contract Signed: 08/04/17 9. Risk Assessment Tool Provided: LOW RISK 08/21 10. Functional Assessment Tool: 11. Recreational Drug Use: Never Drug Type: Tobacco Use: Former Smoker Tobacco Type: Amount or Packs/day: How Many Years: Alcohol Use: Yes Frequency: Daily Quant: 1
--- NOTE | 2020-08-22 14:40 | HPC ---
[facility] [address] [place] [address] PAIN MANAGEMENT CONSULTATION Name: KLARISSA PENNY Room #: REG CL M..#: [id number] Admission: 08/22/20 Attend Phys: Carey Stewart Discharge: Date of : 47 Report #: [id number] THIS REPORT FOR: cc: Pascual Davis MD, Rene P. MD Hocker,Carey ARGUETA ~ DATE OF SERVICE: 08/22/2020 CHIEF COMPLAINT: Chronic osteoarthritis involving his right knee. HISTORY OF PRESENT ILLNESS: This is a pleasant 75-year-old gentleman who returns for renewal of his hydrocodone. He finds this medication very beneficial in treating his osteoarthritis affecting his right knee, taking half a tablet every night at bedtime and then occasionally in the morning if he is especially stiff and sore. He finds it beneficial in decreasing his pain, allowing him to sleep and helps prevent a throbbing sensation he feels in his knee. His pain is usually exacerbated at night since he has been standing and walking and being very active throughout the day. He does utilize ice packs as well to his knee. Today, he is rating his pain score at 3/10. ALLERGIES: HYDROMORPHONE. CURRENT LIST OF MEDICATIONS: Hydrocodone 10/325 p.r.n., atorvastatin, Synthroid, multivitamin, losartan/hydrochlorothiazide, methylphenidate, Remeron and amlodipine. PATIENT'S PQRS: 1. He has osteoarthritic changes in his hips, knees, shoulders and wrists. Denies any rheumatoid arthritis. 2. Height is 6 feet 2 inches, weight is 217, BMI is 27. 3. Vital signs 146/88, pulse is 67, respirations 16, oxygen sat is 98%. 4. Pain score is 3/10. 5. Denies dizziness, does not need help walking or standing, has not fallen in the last 3 months. 6. The patient is not on any blood thinners, but does take medicine for hypertension. His opioid therapy is greater than 6 weeks; therefore, an opioid signed contract is on the chart. Risk assessment is low. Functional assessment is 29/70. 7. Recreational drug use, he denies. He is a former smoker and occasionally drinks alcohol. According to the prescription monitoring system, the patient is filling our medications appropriately. There is a fill for hydrocodone 7.5/325, 15 tablets from a dentist. The patient did report this was for dental implants that he did receive when I questioned him about this fill. The patient did report he did not take all of these medications, but did for the first couple of days due to [address] [address] PAIN MANAGEMENT CONSULTATION Name: KLARISSA PENNY Room #: REG Marcelina Nino#: [id number] Admission: 08/22/20 Attend Phys: Carey Stewart Discharge: Date of : 47 Report #: [id number] significant pain in his mouth. PHYSICAL EXAMINATION: GENERAL: This is an alert and orientated 75-year-old gentleman that is well-developed, well-nourished and appears his stated age, rating his pain score today at 3/10. HEENT: Normocephalic, atraumatic. Extraocular eye muscles are intact. He is wearing a mask and glasses. MUSCULOSKELETAL: He has tenderness in his lumbar spine, but most significantly in his right knee, which is a slight decreased range of motion. No edema noted. He has tenderness in his left wrist as well today. IMPRESSION: 1. Arthropathy of the right knee. 2. Low back pain. IMPRESSION: 1. Osteoarthritis affecting multiple joints, most severe in his right knee. 2. Management of high risk medications under terms of written opioid agreement for scheduled opioids. PLAN: 1. We discussed treatment options with the patient today. We will continue him on his hydrocodone 10, #90 written to release today and 4-week supply and sent electronically by Dr. Bernard Nichole, he collaborated care today. The patient does take these very sparingly. His last visit with us was in January. 2. We did discuss Voltaren gel for his arthritic issues. He reports having increase in his pain in his left wrist. I encouraged him to try this [id number] medication for his arthritic joints. I encouraged him to use it on his knee 3-4 times a day. He may be able to decrease some of his opioid use, which he does take very sparingly by utilizing this gel. The patient states he will find it at the pharmacy when he fills his next prescription. 3. We did discuss the COVID vaccine. He is on the list at multiple places through the [facility] and is hopeful to be called soon. 4. The patient is seen today in collaboration with Dr. Bernard Nichole. He will follow up as needed. Time spent with the patient in consultation today and physical exam for 14 minutes. Prior to that appointment today, I spent reviewing the chart with any pertinent medical information including physician notes. Time also spent reviewing prescription monitoring system medication, sending scripts [facility] [address] [place] [address] PAIN MANAGEMENT CONSULTATION Name: KLARISSA PENNY Room #: REG EFE Trung#: [id number] Admission: 08/22/20 Attend Phys: Carey Stewart Discharge: Date of : 47 Report #: [id number] electronically with my collaborated physician and documentation of at least 12 minutes, total spent 26 minutes. <ELECTRONICALLY SIGNED> By: Carey Stewart 08/22/20 1440 1150 1256 Carey Stewart /nt
== END ==
LOC: PAIN 06:47
PROVIDERS: ATTEND Clinical Nurse Specialist Adult Health
DX: M17.11 Unilateral primary osteoarthritis, right knee (principal); M54.5 Low back pain; Z88.5 Allergy status to narcotic agent; Z79.899 Other long term (current) drug therapy; Z79.891 Long term (current) use of opiate analgesic

== ENCOUNTER → 2021-04-28 | Outpatient (CLI) | payer OTHER, BC ==
[~2021-04-28] VITALS: Ht 188 cm; Wt 99.8 kg
[2021-04-28 09:46] VITALS: BP 173/99
--- NOTE | 2021-04-28 09:53 | NUR ---
Pain Clinic Assessment: 1. History of Osteoarthritis: Right Lower Extremity RIGHT SHOULDER History of Rheumatoid Arthritis: DENIES 2. Height: 6 ft. 2 in. 188.0 cm. Weight: 220.0 lb. oz. 99.792 kg. Patient's BMI: 28.2 3. Vital Signs: BP: 173/99 Pulse: 75 Resp: 20 Temp: 02 Sat: 97 ECG Mon: 4. Pain Intensity: 3/4 5. Fall Risk: Dizziness: N Needs help standing or walking: N Fallen in the last 3 months: N Fall risk comments: 6. Patient on Blood Thinner: None 7. History of Hypertension: Y 8. Opioid Therapy greater than 6 weeks: Y Opiate Contract Signed: 08/04/17 9. Risk Assessment Tool Provided: LOW RISK 08/21 10. Functional Assessment Tool: 11. Recreational Drug Use: Never Drug Type: Tobacco Use: Former Smoker Tobacco Type: Amount or Packs/day: How Many Years: Alcohol Use: Yes Frequency: Daily Quant: WINE AT [employer]
== END ==
LOC: PAIN 07:03
PROVIDERS: ATTEND Clinical Nurse Specialist Adult Health
DX: M17.11 Unilateral primary osteoarthritis, right knee (principal); M54.50 Low back pain, unspecified; Z88.8 Allergy status to other drugs, medicaments and biological substances; Z79.899 Other long term (current) drug therapy